=== PATIENT | male | born 1940 | race Caucasian/White ===

== ENCOUNTER 2020-01-14 10:16 | Inpatient (IN) | payer OTHER, BC ==
[~2020-01-14] VITALS: Ht 177.8 cm; Wt 81.6 kg
[~2020-01-14 10:16] MED LIST: ACETAMINOPHEN-1 EAC1 PO; ACTOS 30 MG TAB30 MG PO; ALBUTEROL2.5 MG/31 INH; AMOXICILLIN 50500 MG PO; ASA81BEC PO; ASPIR 8181 M1 PO; ASPIR 8181 MG PO; ATIVAN0.5 MG PO; ATIVAN1 MG PO; AZITHROMYCIN 2250 MG PO; CALCITRIOL0.25 MCG PO; CARAFATE1 GM/10 ML PO; CEFDINIR300 MG PO; CEFPODOXIME PR100 MG PO; ELIQUIS2.5 MG PO; FISH OIL 1,0001 EAC9 PO; FISH OIL 500 M1 EACH PO; FLOMAX0.4 MG PO; GLUCOPHAGE500 MG PO; GLUCOTROL5 MG PO; GLUMETZA500 PO; GLYCRON6 MG PO; JALYN 0.5-0.41 EACH PO; JANUVIA100 MG PO; KLOR-CON 1010 MEQ PO; LANTUS SUBQ; LANTUS100 UNIT/M SUBQ; LASIX 20 MG TAB20 MG PO; LASIX 40 MG TAB40 M2 PO; LEVAQUIN 250 M250 MG PO; LEVAQUIN 750 M750 MG PO; LISINOPRIL-HCT1 EAC2 PO; LORAZEPAM 1 MG T1 MG PO; MIDODRINE HCL10 MG PO; MINIPRIN81 MG PO; MIRALAX119 GM PO; MUCUS ER600 MG PO; NEURONTIN 300300 M1 PO; NORVASC 5 MG TAB5 MG PO; NYSTATIN 1100000 U/M PO; OMEPRAZOLE40 MG PO; ONDANSETRON HCL4 M2 PO; PREDNISONE 10 M10 MG PO; PRILOSEC40 MG PO; PROBIOTIC1 EAC1 PO; REGLAN 10 MG TA10 MG PO; RESTORIL15 MG PO; SIMVASTATIN40 MG PO; SPIRIVA INH; TOPROL XL25 MG PO; TORSEMIDE20 MG PO; TRADJENTA5 MG PO; ULTRAM 50MG TAB50 MG PO; VENTOLIN HFA 1818 GM INH; VIAGRA100 MG PO; ZOFRAN ODT4 MG PO; ZPAK PO; ZYVOX600 MG PO
[2020-01-14 12:43] VITALS: BP 144/82
[2020-01-14 12:47] LABS: CALCIUM 9.1 mg/dL (8.5-10.1); CREATININE 2.9 mg/dL (0.7-1.3); POTASSIUM 3.9 mmol/L (3.5-5.1)
[2020-01-14 16:40] VITALS: BP 134/62
--- NOTE | 2020-01-14 17:36 | NUR ---
TO UNIT FROM [facility] Lissy AT 0945, REPORT FROM ADONAY GUY. ORIENTED TO UNIT. PERMITS SIGNED. DOWN FOR THORACENTESIS THIS AFTERNOON, 2L REMOVED FROM LEFT CHEST. ARRYTHMIA PER TELE. UNABLE TO OBTAIN BG AND TEMP DESPITE MULTIPLE ATTEMPTS. BG 189 BY LAB ONCE BLOOD OBTAINED VIA PORTACATH. FALL PRECAUTIONS IN PLACE. WILL CONTINUE TO FOLLOW CLOSELY.
[2020-01-14 17:47] LABS: BF NUCLEATED CELLS 330 /mm3; BF RBC 12351 /mm3
[2020-01-14 17:50] LABS: COLOR AMBER; TOTAL VOLUME 35 mL
[2020-01-14 17:54] LABS: CLARITY CLOUDY
[2020-01-14 19:30] LABS: BF MACROPHAGE 88 %; BF NEUTROPHILS 2 %; SOURCE CHEST
[2020-01-14 19:52] VITALS: BP 136/59
[2020-01-15 04:14] VITALS: BP 117/59
[2020-01-15 05:43] LABS: ABSOLUTE NEUTROPHILS 4.1 thou/uL (1.4-8.2); BASOPHILS 0.4 % (0.0-2.0); EOSINOPHILS 1.2 % (0.0-3.0); HEMOGLOBIN 8.8 gm/dL (14.0-18.0); LYMPHOCYTES 7.9 % (24.0-44.0); MCHC 32.7 g/dL (28.0-37.0); MONOCYTES 9.1 % (1.0-8.0); PLATELET COUNT 197 thou/uL (150-400); POLYS 81.4 % (36.0-66.0); RBC 2.84 mil/uL (4.50-6.00)
[2020-01-15 06:00] LABS: CALCIUM 8.9 mg/dL (8.5-10.1); CREATININE 2.9 mg/dL (0.7-1.3); MAGNESIUM 2.2 mg/dL (1.8-2.4); POTASSIUM 3.6 mmol/L (3.5-5.1)
--- NOTE | 2020-01-15 06:58 | NUR ---
ASSUMED PATIENT CARE AT 1845. VITAL SIGNS STABLE WITH PATIENT HAVING NO COMPLAINTS OF PAIN OR NAUSEA. FULLY ORIENTED, PATIENT IS ABLE TO CALL APPROPRIATELY FOR NEEDS AND PARTICIPATE IN CARE. BREATHING STABLE ON ROOM AIR EVIDENCED BY ASSESSMENTS AND SPOT OXYGENATION CHECKS. POST PROCEDURE BANDAGE CLEAN, DRY AND INTACT. UP MULTIPLE TIMES WITH ASSISTANCE INCIDENT FREE. CONTINUE PLAN OF CARE.
[2020-01-15 07:40] VITALS: BP 103/50
--- NOTE | 2020-01-15 10:37 | NUR ---
Case opened to follow for dc planning. Chart reviewed, case discussed with the care team and cm assessment compeleted at bedside. The pt is a&ox4 and reports he lives in his home in [place], [place] with his girl friend Kaycee. He reports being indep with gait, adl's and drives. He has 2 steps into his home and 13 down to his rec room/home gym. He does have a rwalker that he uses to get up to the bathroom at night due to dizziness. His pcp is Dr. Randolph Taylor in [place], [place]. He denies any dc concerns but is wanting to be seen by cardiology prior to dc. He has been trying to get in to see a net application architect for several months. Cm role introduced. Will follow along should dc needs arise.
[2020-01-15 11:25] VITALS: BP 112/43
--- NOTE | 2020-01-15 12:35 | NUR ---
I have reviewed the documentation by CORINNA CHRISTINE from 01/15/20 to 01/15/20 and I concur with it. ASHVIN MALIK, PT, DPT
[2020-01-15 15:00] VITALS: BP 144/59
[2020-01-15 15:09] LABS: BODY FLUID ALBUMIN 2.1 g/dL (Not Estab.); BODY FLUID AMYLASE 15 U/L (()); BODY FLUID GLUCOSE 136 mg/dL (()); BODY FLUID LDH 145 IU/L (()); BODY FLUID PROTEIN 3.9 g/dL (())
--- NOTE | 2020-01-15 16:00 | NUR ---
ASSUMED CARE OF THE PATIENT AT 1500, REPORT RECEIVED FROM PAUL/ADONAY. PATIENT ALERT AND ORIENTED X 4. PATIENT UP WITH ASSIST X 1, PATIENT DOES GET SOA WITH ACTIVITY. PATIENT VOIDS PER URINAL. PATIENT HAS RIGHT CHEST PORT A CATH IN PLACE, D5 NS AT 100CC/HR. PATIENT HAD THORACENTESIS 2 LITERS OFF, BRUISE TO LEFT BACK AREA. PATIENT ON ROOM AIR. DENIES PAIN UPON ARRIVAL TO THE UNIT. REPORT GIVEN TO VENTURA/ADONAY.
--- NOTE | 2020-01-15 19:21 | NUR ---
PT DISCHARGED TO 4W. PT A&OX4, VSS, DENIED PAIN. THORACENTESIS 01/13, DIRECTOR SPECIALTY, BRUISING LEFT SIDE OF BACK NO DRAINAGE. RIGHT CHEST PORT. NO SIGNS OF DISTRESS. ALL BELONGINGS SENT WITH PATIENT.
[2020-01-15 21:35] VITALS: BP 126/58
[2020-01-16 03:16] VITALS: BP 136/83
[2020-01-16 04:04] LABS: BE(vivo) 2.1 mmol/L (-2 to +3); HCO3 27.1 mmol/L (22.0-26.0); PCO2 43.6 mmHg (35.0-45.0); PO2 65.8 mmHg (80.0-100.0); pH 7.411 (7.360-7.450); sO2 93.1 % (92.0-98.0)
--- NOTE | 2020-01-16 04:27 | NUR ---
PATHOLOGIST ACTIVATED FOR RESP DISTRESS. PT REMAINED ON THE UNIT. SEE PATHOLOGIST INTERVENTION FOR FURTHER DETAILS.
[2020-01-16 05:11] VITALS: BP 123/58
--- NOTE | 2020-01-16 05:16 | NUR ---
ASSUMED CARE OF PT AT 1900. PT IS A/O X4 AND IS UP WITH ASSISTANCE TO THE BR. WILL USE URINAL AT THE BEDSIDE. PT C/O SOA AND APPEARED TO BE HAVING A LOT OF ANXIETY. ACTIVATED COUNTER TENDER TEAM. ORDERS GIVEN FOR LASIX, MORPHINE, CXR, EKG, AND ABGS. AT THIS TIME PT REMAINS ON THE UNIT. PORTACATH IS INTACT AND FLUSHING ACCORDINGLY WITH NO S/S OF INFECTION. PT AT THIS TIME IS LYING IN HIS BED AND APPEARS TO BE SLEEPING. SCHEDULED BRTX GIVEN DIRECTED. PRN ANXIETY MEDICATION GIVEN ALONG WITH MEDICATION GIVEN FOR AIR HUNGER. AT THIS TIME PT IS ON 4 LITERS OF 02 AND IS READING 96%. WILL CONTINUE TO MONITOR. FALL PRECAUTIONS ARE IN PLACE, CALL LIGHT IS WITHIN REACH. WILL CONTINUE TO MONITOR.
--- NOTE | 2020-01-16 07:07 | EKG ---
[facility] [place] [facility] [place] [address] ELECTROCARDIOGRAM REPORT Name: BEST GE V Room #: 459- ADM IN M.R.#: [id number] Admission: 01/14/20 Attend Phys: Karolyn Churchill Discharge: Date of : 36 Report #: [id number] THIS REPORT FOR: cc: Randolph Taylor Steve T. 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
[2020-01-16 07:21] VITALS: BP 147/67
[2020-01-16 11:32] LABS: SOURCE CHEST
--- NOTE | 2020-01-16 15:57 | NUR ---
PT IS ON IV LASIX AND IS ON TELE. THERAPY FOLLOWING PT. PT ON 6L O2. CM TO FOLLOW INDICATED WITH DC PLANNING.
[2020-01-16 20:00] VITALS: BP 132/62
--- NOTE | 2020-01-16 20:25 | NUR ---
PT A&OX4, VSS, DENIES PAIN. LABORED BREATHING THIS AM, MORE CONTROLLED AT THIS TIME, LUNGS COURSE THROUGHOUT, 5L O2 NC. PATIENT PLACED ON TELE PER DOCTOR RACHEAL BUSTAMANTE. PATIENT SOA ON EXERTION, FATIGUED. NO SIGNS OF DISTRESS. WILL CONTINUE TO MONITOR. PATIENT HAD SMALL AMOUNT OF BLOOD TINGED SPUTUM, DOCTOR AWARE.
[2020-01-17 05:30] LABS: BASOPHILS 0.1 % (0.0-2.0); HEMATOCRIT 25.3 % (42.0-52.0); HEMOGLOBIN 8.2 gm/dL (14.0-18.0); LYMPHOCYTES 3.7 % (24.0-44.0); MCH 31.1 pg (26.0-34.0); MCHC 32.7 g/dL (28.0-37.0); MCV 95.2 fL (80.0-100.0); MONOCYTES 5.4 % (1.0-8.0); PLATELET COUNT 162 thou/uL (150-400); POLYS 90.8 % (36.0-66.0); RBC 2.65 mil/uL (4.50-6.00); RDW 15.9 % (10.5-14.5); WBC 8.8 thou/uL (4.0-11.0)
[2020-01-17 05:59] LABS: CALCIUM 8.9 mg/dL (8.5-10.1); CREATININE 2.3 mg/dL (0.7-1.3); POTASSIUM 3.8 mmol/L (3.5-5.1)
[2020-01-17 07:02] VITALS: BP 116/59
--- NOTE | 2020-01-17 07:37 | NUR ---
VSS-AFEBRILE. LUNGS PRESENT WITH CRACKLES IN BILATERAL BASES. 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 VOIDS PER URINAL, CALLS APPROPRIATELY FOR ANY NEEDED ASSISTANCE.
--- NOTE | 2020-01-17 10:07 | PATH ---
[facility] [address] [place] [address] PATHOLOGY RPT PROCEDURE Name: BEST GE V Room #: 459- ADM IN M.R.#: [id number] Admission: 01/14/20 Date of : 36 Discharge: Report #: [id number] Path Case #: [id number] Note [facility] Accession Number: [id number] TESTS RESULT FLAG UNITS REF RANGE LAB Clinician Provided Cytology Information No. of containers..01 Other (Miscellaneous) Source: 01 L.PLEURAL DIAGNOSIS: 02 L.PLEURAL INCONCLUSIVE. THIS INTERPRETATION INCLUDES EVALUATION OF A CELL BLOCK. Signed out by: 02 Robert Peters MD, Pathologist NPI- [id number] Performed by: 01 Lolis Clements, [employer] ([facility]) Gross description: 01 10 ML, CLDY PVAAN, 1 TP 1 CB /LCS 01/15/2020 0808 Local FLAG LEGEND: L-Low Normal,H-High Normal,LL-Alert Low,HH-Alert High <-Panic Low,>-Panic High,A-Abnormal,AA-Critical Abnormal Performed at: [address] [place] [address] Matthew Lafleur MD, [address] [place] [phone] Robert Peters MD, Specimen Comment: A courtesy copy of this report has been sent to [phone] Specimen Comment: Report sent to DR ARCHER / DR MONTOYA Specimen Comment: A duplicate report has been generated due to demographic updates. Performed at: [address], [place], [place] [id number] MD Matthew Lafleur MD Phone: [phone]
--- NOTE | 2020-01-17 14:45 | NUR ---
PHYSICIAN INDICATED THAT PT ISN'T RECEPTIVE TO HOSPICE OR PALLIATIVE CARE AT TIME OF DISCHARGE BUT THAT HE WAS RECEPTIVE TO HOME HEALTH. CM SPOKE WITH PT AND INDICATED IS AGREEABLE TO HH AND HOME O2 IF NEEDED UPON DC. PT INDICATED NO PREFERENCE FOR PROVIDERS. CM SPOKE WITH [facility] AND THEY GO TO [place], [place]. [facility] AL[facility] [place], [place]. PT AGREEABLE WITH REFERRALS BEING SENT TO [facility] AND [facility]. REFERRALS SENT. PT INDICATED CARE TEAM HAD MENITONED POSSIBLE DC HOME TOMORROW. PT WILL NEED O2 TESTING DONE PRIOR TO DISCHARGE. THERE IS A SCRIPT IN PT'S WALL HAND PATTERN MARKER THAT NEEDS TO BE COMPLETED WITH THE LITER FLOW PT NEEDS THAT NEEDS TO BE FAXED TO [facility] WITH THE O2 TESTING RESULTS. FINAL ORDERS WILL NEED TO BE FAXED TO [facility]. [facility] HOME OXYGEN: P: F: WILL NEED A TANK DELIVERED TO HOSPITAL TO DC HOME WITH. [facility]: P: F:
--- NOTE | 2020-01-17 16:40 | NUR ---
I have reviewed the documentation by CORINNA CHRISTINE from 01/17/20 to 01/17/20 and I concur with it. ASHVIN MALIK, PT, DPT
--- NOTE | 2020-01-17 20:42 | NUR ---
PT A&OX4, VSS, DENIES PAIN. PATIEN ON 2L O2, CHEST PORT PATENT. PATIENT LUNGS COURSE, DOESNT SOUND WET TODAY, BREATHING REGULAR TODAY. NO SIGNS OF DISTRESS. WILL CONTINUE TO MONITOR.
[2020-01-18 05:01] LABS: ALBUMIN 2.5 g/dL (3.4-5.0); CREATININE 2.3 mg/dL (0.7-1.3); PHOSPHORUS 3.3 mg/dL (2.5-4.9); POTASSIUM 3.8 mmol/L (3.5-5.1)
[2020-01-18 07:18] VITALS: BP 114/56
--- NOTE | 2020-01-18 11:26 | NUR ---
Bahman Velasco ([phone]) called and stated that she had talked to the case manger Zulay about their decision of the patient.
--- NOTE | 2020-01-18 12:07 | NUR ---
[facility] called, [facility] can not accept pt for hh needs. cm visited with karthik via phone call, education on hh needs at [facility], cm went over list hh choice " i guess [facility] ok, what is difference?"/karthik. education that he will still receive same hh needs at home as dr winchester. referral sent to katerina woodson. at [place] call katerina [phone] fax dc orders and summary to [phone]
[2020-01-18 12:14] VITALS: BP 114/56
--- NOTE | 2020-01-18 13:26 | NUR ---
Patient reported of having had a moderate volume of bowl-movement, hard, asks for another Miralax. Message sent to Dr. Churchill. Patient asks to hole the enema for now.
--- NOTE | 2020-01-18 14:30 | NUR ---
[facility] called and they can accept for hh needs at or.
[2020-01-18 20:28] VITALS: BP 119/66
--- NOTE | 2020-01-19 04:46 | NUR ---
VSS-AFEBRILE. LUNGS CLEAR/DIMINISHED IN ALL CONNELL BILATERALLY, REMAINS ON 2LNC. RESTED WELL THROUGH NIGHT WITH FEW NEEDS. VOIDS PER URINAL WITHOUT ANY DIFFICULTY. FALL PRECAUTIONS IN PLACE, CALLS APPROPRIATELY FOR ANY NEEDED ASSISTANCE.
[2020-01-19 08:00] VITALS: BP 117/73
--- NOTE | 2020-01-19 11:49 | NUR ---
PATIENT TAKEN TO RADIOLOGY VIA W/C FOR CHEST X-RAY. PT TOOK AM MEDS AND ATE BREAKFAST. PLEASANT AND COOPERATIVE WITH CARE.
[2020-01-19 15:45] VITALS: BP 108/53
[2020-01-20 07:15] VITALS: BP 128/74
--- NOTE | 2020-01-20 08:01 | NUR ---
PROGRESS PT UP WITH SBA, SKIN C/D/I. VSS PICC TO EVAN FLUSHES WITHOUT DIFFICULTY AM LABS DRAWN WITHOUT DIFFICULTY. PT TOLERATING DIET DRINKING SMALL AMOUNTS OF WATER THROUGHOUT NIGHT. VSS. TELE INTACT CONTINUE POC.
[2020-01-20 09:27] VITALS: BP 114/56
--- NOTE | 2020-01-20 15:10 | NUR ---
I have reviewed the documentation by CORINNA CHRISTINE from 01/20/20 to 01/20/20 and I concur with it. ASHVIN MALIK, PT, DPT
--- NOTE | 2020-01-20 16:36 | NUR ---
AWAITING FOLLOW UP FROM [facility] THERE HAD BEEN TAKLK OF REPEAT THORACENTESIS OR PLUREX DRAIN. [facility] CAN ACCEPT PT FOR HH SERVICES UPON DC. [facility] CAN PROVIDE HOME O2. CM TO FOLLOW INDICATED WITH DC PLANNING.
--- NOTE | 2020-01-20 18:41 | NUR ---
Patient walked in the hallway with a walker times, voiced that he felt better after the walk. Discharge order was written by Dr. Castaneda, but discharge documents were not done, patient also had a written order for chest x-ray tomorrow, so the staff didnot discharge the patient.
[2020-01-20 20:07] VITALS: BP 132/62
[2020-01-21 06:00] VITALS: BP 132/63
[2020-01-21 07:24] VITALS: BP 111/68
--- NOTE | 2020-01-21 08:04 | NUR ---
AXOX4. AD LUCAS. VSS. CARE TRANSFERRED TO ADONAY MILLER
--- NOTE | 2020-01-21 10:42 | NUR ---
Patient is a&o x4. Patient is cooperative and has been in a good mood this morning. Patient was complaining of neck pain and was given acetaminophen, after reassessment pain level went from 6 to 4. Patient feels as if breathing has improved today and is displaying less dyspnea on exertion.
--- NOTE | 2020-01-21 11:03 | NUR ---
I have reviewed the student documentation.
[2020-01-21 14:59] VITALS: BP 131/58
--- NOTE | 2020-01-21 15:30 | NUR ---
PT A&OX4, VSS, DENIES PAIN. PATIENT AD LUCAS, HAS WALKED IN HALLWAY. PATIENT ON ROOM AIR, HASNT NEEDED OXYGEN TODAY. SURGERY SCHEDULED FOR THRUSDAY 01/22. NO SIGNS OF DISTRESS. WILL CONTINUE TO MONITOR.
--- NOTE | 2020-01-21 16:02 | NUR ---
[facility] INDICATED THAT THEY WANT TO PLACE A PLEURX CATHETER AN OUTPATIENT PT WILL NEED TO BE OFF ELIQUIS FOR 5 DAYS PRIOR TO PROCEDURE. HOSPITALIST INDICATED THAT PT COULD BE MEDICALLY STABLE TO DC HOME TOMORROW WITH [facility]. PT HAS BEEN ON ROOM AIR AND IT DOENS'T LOOK LIKE HE WILL NEED HOME O2 INITIALLY ANTICPATED. PORTABLE TANK TO BE COLLECTED BY [facility] PRIOR TO DC. CM TO FOLLOW INDICATED WITH DC PLANNING.
[2020-01-21 17:47] LABS: HEMOGLOBIN 8.9 gm/dL (14.0-18.0); MCH 30.9 pg (26.0-34.0); MCHC 33.1 g/dL (28.0-37.0); MCV 93.4 fL (80.0-100.0); RBC 2.89 mil/uL (4.50-6.00); RDW 15.3 % (10.5-14.5); WBC 5.3 thou/uL (4.0-11.0)
[2020-01-21 17:53] LABS: CALCIUM 9.8 mg/dL (8.5-10.1); CREATININE 2.5 mg/dL (0.7-1.3); POTASSIUM 3.6 mmol/L (3.5-5.1)
[2020-01-21 17:56] LABS: APTT 28.6 Seconds (24.5-32.8); INR 1.2; PROTIME 12.8 Seconds (9.3-11.4)
[2020-01-21 19:49] VITALS: BP 137/55
[2020-01-22 05:56] LABS: CALCIUM 9.1 mg/dL (8.5-10.1); CREATININE 2.6 mg/dL (0.7-1.3); POTASSIUM 3.6 mmol/L (3.5-5.1)
[2020-01-22 07:40] VITALS: BP 126/62
--- NOTE | 2020-01-22 09:07 | 2DMMODE ---
[facility] [address] [place] [address] 2 D/M-MODE ECHOCARDIOGRAM Name: BEST GE V Room #: 459-P ADM IN M.R.#: [id number] Admission: 01/14/20 Attend Phys: Karolyn Churchill Discharge: Date of : 36 Report #: [id number] THIS REPORT FOR: cc: Randolph Taylor Steve T. DO Lundgren, Craig H. MD [facility] ~ APPROVED REPORT Study performed: 01/22/2020 08:12:20 EXAM: Comprehensive 2D, Doppler, and color-flow Echocardiogram Patient Location: Bedside Room #: 459 Status: routine BSA: 2.00 HR: 76 bpm BP: 137/55 mmHg Rhythm: Atrial Fibrillation Other Information Study Quality: Excellent Indications Congestive Heart Failure COPD Pleural effusion 2D Dimensions RVDd: 40.98 mm IVSd: 11.87 (7-11mm) LVOT Diam: 23.44 (18-24mm) LVDd: 38.81 mm PWd: 11.95 (7-11mm) Ascending Ao: 27.77 (22-36mm) LVDs: 22.31 (25-40mm) Aortic Root: 30.74 mm IVC: 22.00 mm Volumes Left Atrial Volume (Systole) Single Plane 4CH: 79.52 mL Single Plane 2CH: 75.92 mL LA ESV Index: 42.00 mL/m2 Aortic Valve AoV Peak Fer.: 1.85 m/s AO Peak Gr.: 13.68 mmHg LVOT Max P.81 mmHg AO Mean Gr.: 7.93 mmHg LVOT Mean P.08 mmHg [facility] [address] [place] [address] 2 D/M-MODE ECHOCARDIOGRAM Name: BEST GE V Room #: 459-P [facility] IN [facility]#: [id number] Admission: 01/14/20 Attend Phys: Karolyn Whiting Apr Discharge: Date of : 36 Report #: [id number] AO V2 Mean: 1.35 m/s LVOT Max V: 0.67 m/s AO V2 VTI: 38.49 cm LVOT Mean V: 0.50 m/s RICARDO (VTI): 1.84 cm2 LVOT V1 VTI: 16.45 cm RICARDO Vmax: 1.57 cm2 SV (LVOT): 70.97 mL Pulmonary Valve PV Peak Fer.: 0.84 m/s PV Peak Gr.: 2.84 mmHg Tricuspid Valve TR Peak Fer.: 2.61 m/s TR Peak Gr.: 27.30 mmHg PA Pressure: 37.00 mmHg Shunt Evaluation QP/QS: 0.00 Left Ventricle The left ventricle is normal size. Regional wall motion is normal. Mild concentric left ventricular hypertrophy. Left ventricular systolic function is hyperdynamic. LVEF is 65-70%. This study is not technically sufficient to allow evaluation of the LV diastolic function due to atrial fibrillation. Right Ventricle Right ventricle is at the upper limits of normal. The right ventricular systolic function is normal. Atria Left atrium is dilated. Right atrium is dilated. Aortic Valve The aortic valve is moderately calcified Trace aortic regurgitation. Mild aortic stenosis. Mitral Valve Mitral annular calcification Mild mitral regurgitation. No evidence of mitral valve stenosis. Tricuspid Valve The tricuspid valve is normal in structure. There is mild tricuspid regurgitation. Estimated PAP 37 mmHg. There is mild pulmonary hypertension. Pulmonic Valve The pulmonary valve is normal in structure. Trace pulmonic [facility] [address] [place] [address] 2 D/M-MODE ECHOCARDIOGRAM Name: BEST GE V Room #: 459-P [facility] IN .R.#: [id number] Admission: 01/14/20 Attend Phys: Karolyn Rodriguez Discharge: Date of : 36 Report #: [id number] regurgitation. Great Vessels The aortic root is normal in size. IVC is dilated and collapses <50% with inspiration. Pericardium There is no pericardial effusion. Large pleural effusion. <Conclusion> Left ventricular systolic function is hyperdynamic. Regional wall motion is normal. LVEF is 65-70%. Both atria are dilated. The aortic valve is moderately calcified. Mild aortic stenosis, no insufficiency. Mitral annular calcification Mild mitral regurgitation. There is mild tricuspid regurgitation. Estimated pulmonary artery pressure of 37 mmHg. Large pleural effusion. No pericardial effusion. <ELECTRONICALLY SIGNED> By: Vj Clemente MD, FACC 01/22/20906 6 6 Vj Clemente MD, FACC /INF
--- NOTE | 2020-01-22 10:57 | NUR ---
ASSUMED PT CARE THIS AM. PT VSS, A&OX4. PT AMBULATORY AROUND THE UNIT. REPORTS WANTING TO GO HOME AND WILL SCHEDULE THE PLEURAL CATH PLACEMENT OUTPATIENT. REPORTING NO PAIN AT THIS TIME. CALLS APPROPRIATELY WHEN NEEDED. PLEASANT AND COOPERATIVE.
[2020-01-22 13:25] VITALS: BP 114/56
--- NOTE | 2020-01-22 13:26 | NUR ---
CARE TEAM INDICATED THAT PT IS MEDICALLY STABLE TO DC HOME THIS DAY. PT IS TO FOLLOW UP IN 5 DAYS WITH [facility] TO SCHEDULE OP PLEURX CATHETER PLACEMENT. PT DISCHARGED PT INDICATED NO NEED FOR HH SERVICES. PT IS NO LONGER NEEDING O2. NOTIFIED LAURA WHO HAD DELIVERED A PORTABLE TANK FOR PT TO TAKE HOME WITH HIM. THEY WILL COLLECT IT. NO OTHER CM INTERVENTION INDICATED. CASE CLOSED.
[2020-01-22 13:32] VITALS: BP 114/56
[2020-01-22 14:00] VITALS: BP 114/56
[2020-02-04] MEDS ORDERED: NEURONTIN 300M300 M2 PO (21:41)
== END 2020-01-22 15:20 | disposition home or self-care (01) | DRG 291 ==
LOC: 4W 10:16 → 2N 10:16 → 4W 01-15 15:22
PROVIDERS: Internal Medicine Cardiovascular Disease; Nurse Practitioner; ADMIT Hospitalist; ATTEND Hospitalist
PROC: 0W9B3ZZ Drainage of Left Pleural Cavity, Percutaneous Approach (ICD-10-PCS; principal; 2020-01-14)
DX: I13.0 Hypertensive heart and chronic kidney disease with heart failure and stage 1 through stage 4 chronic kidney disease, or unspecified chronic kidney disease (principal); I50.33 Acute on chronic diastolic (congestive) heart failure; J96.01 Acute respiratory failure with hypoxia; N17.0 Acute kidney failure with tubular necrosis; J91.8 Pleural effusion in other conditions classified elsewhere; I50.32 Chronic diastolic (congestive) heart failure; Z20.828 Contact with and (suspected) exposure to other viral communicable diseases; J44.9 Chronic obstructive pulmonary disease, unspecified; N18.9 Chronic kidney disease, unspecified; E11.22 Type 2 diabetes mellitus with diabetic chronic kidney disease; I27.20 Pulmonary hypertension, unspecified; G90.8 Other disorders of autonomic nervous system; R53.81 Other malaise; D64.9 Anemia, unspecified; E11.649 Type 2 diabetes mellitus with hypoglycemia without coma; K21.9 Gastro-esophageal reflux disease without esophagitis; G47.00 Insomnia, unspecified; N40.0 Benign prostatic hyperplasia without lower urinary tract symptoms; F45.8 Other somatoform disorders; I48.0 Paroxysmal atrial fibrillation; I95.9 Hypotension, unspecified; Z85.01 Personal history of malignant neoplasm of esophagus; Z87.891 Personal history of nicotine dependence; Z82.49 Family history of ischemic heart disease and other diseases of the circulatory system; Z83.6 Family history of other diseases of the respiratory system; Z79.899 Other long term (current) drug therapy; Z87.01 Personal history of pneumonia (recurrent)
CPT/HCPCS: 10047; 10081

== ENCOUNTER → 2020-01-29 | Outpatient (CLI) | payer OTHER, BC ==
[~2020-01-29] VITALS: Ht 177.8 cm; Wt 72.1 kg
[2020-01-29 13:55] VITALS: BP 140/72
== END | disposition home or self-care (01) ==
LOC: RAD 13:28 → CATH 13:28
PROVIDERS: ATTEND Radiology Diagnostic Radiology
DX: Z45.2 Encounter for adjustment and management of vascular access device (principal); J91.0 Malignant pleural effusion; E11.22 Type 2 diabetes mellitus with diabetic chronic kidney disease; I13.0 Hypertensive heart and chronic kidney disease with heart failure and stage 1 through stage 4 chronic kidney disease, or unspecified chronic kidney disease; N18.9 Chronic kidney disease, unspecified; I50.30 Unspecified diastolic (congestive) heart failure; J44.9 Chronic obstructive pulmonary disease, unspecified; I48.91 Unspecified atrial fibrillation; Z98.890 Other specified postprocedural states; Z79.899 Other long term (current) drug therapy